=== PATIENT | female | born 1985 | race Caucasian/White ===

== ENCOUNTER 2021-01-17 22:29 | Emergency (ER) | payer MEDICAID ==
[2021-01-17] MEDS ORDERED: Ketorolac 30 MG/ML SDV IM ONE (23:01)
[2021-01-17] MEDS ORDERED: Cyclobenzaprine 10 MG Tab PO ONE (23:01)
[2021-01-17] MEDS ORDERED: predniSONE 10 MG Tab PO STA (23:02)
--- NOTE | 2021-01-17 23:08 | EDM.PDOC ---
ED HPI GENERAL MEDICAL PROBLEM - General Chief Complaint: Upper Extremity Injury/Pain Stated Complaint: R SHOULDER PAIN Time Seen by Provider: 01/17/21 22:40 Source of Information: Reports: Patient History Limitations: Reports: No Limitations - History of Present Illness INITIAL COMMENTS - FREE TEXT/NARRATIVE: has had right shoulder pain for the past 2 weeks states she does not recall any injury localized pain in the posterior aspect of the shoulder, upper scapular region , with radiation the the shoulder with movement . 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 Denies: Headaches, Weakness Treatments DRY CANS BACK TENDER: Reports: Acetaminophen, Cold Therapy, Heat Therapy, NSAIDS - Related Data Allergies Allergy/AdvReac Type Severity Reaction Status Date / Time acetaminophen [From Vicodin] Allergy Hives Verified 01/17/21 22:46 azithromycin Allergy Other Verified 01/17/21 22:46 hydrocodone [From Vicodin] Allergy Hives Verified 01/17/21 22:46 Sulfa (Sulfonamide Allergy Other Verified 01/17/21 22:46 Antibiotics) Home Meds: Home Meds Cyclobenzaprine [Flexeril] 10 mg PO BID #30 tab 01/17/21 [Rx] Diclofenac Sodium 100 gm TP BID #100 gel..gram. 01/17/21 [Rx] predniSONE [Prednisone] 40 mg PO DAILY #10 tablet 01/17/21 [Rx] Review of Systems - Review of Systems Review Of Systems: Comprehensive ROS is negative, except as noted in HPI. ED EXAM, GENERAL - Physical Exam Exam: See Below Exam Limited By: No Limitations General Appearance: Alert, WD/WN, No Apparent Distress Eye Exam: Bilateral Eye: EOMI Ears: Normal External Exam Ear Exam: Bilateral Ear: TM normal Nose: Normal Inspection Throat/Mouth: Normal Inspection, Normal Oropharynx Head: Atraumatic, Normocephalic Neck: Supple, Non-Tender Respiratory/Chest: No Respiratory Distress, Lungs Clear, Normal Breath Sounds Cardiovascular: Regular Rate, Rhythm GI/Abdominal: Soft, Non-Tender Back Exam: Full Range of Motion Extremities: Other (right shoudler pain in the upper scapula, irritated with movement and palpation). No: Arm Pain Neurological: Alert, Oriented, CN II-XII Intact, Normal Cognition, Normal Gait, Normal Reflexes, No Motor/Sensory Deficits Psychiatric: Normal Affect, Normal Mood Skin Exam: Warm, Dry, Intact Lymphatic: No Adenopathy Course - Vital Signs Last Recorded V/S: Last Vital Signs Temp 36.7 C 01/17/21 22:48 Pulse 86 01/17/21 22:48 Resp 16 01/17/21 22:48 BP 147/92 H 01/17/21 22:48 Pulse Ox 96 01/17/21 22:48 - Orders/Labs/Meds Meds: Medications Discontinued Medications Generic Name Dose Route Start Last Admin Trade Name Freq PRN Reason Stop Dose Admin Cyclobenzaprine HCl 10 mg 01/17/21 23:01 01/17/21 23:12 Cyclobenzaprine 10 Mg Tab PO 01/17/21 23:02 10 mg ONETIME ONE Administration Ketorolac Tromethamine 60 mg 01/17/21 23:01 01/17/21 23:12 Ketorolac 30 Mg/Ml Sdv IM 01/17/21 23:02 60 mg ONETIME ONE Administration Prednisone 40 mg 01/17/21 23:02 01/17/21 23:11 Prednisone 10 Mg Tab PO 01/17/21 23:03 40 mg NOW STA Administration Prednisone Confirm 01/17/21 23:11 Prednisone 20 Mg Tab Administered 01/17/21 23:12 Dose 40 mg .ROUTE .STK-MED ONE - Re-Assessments/Exams Free Text/Narrative Re-Assessment/Exam: 01/17/21 23:09 pt given toradol, prednisone , flexeril does not need Xray ( no obvious trauma) Departure - Departure Time of Disposition: 22:45 Disposition: Home, Self-Care 01 Condition: Fair Clinical Impression: Sprain of shoulder, Acute pain of right shoulder - Discharge Information *PRESCRIPTION DRUG MONITORING PROGRAM REVIEWED*: Not Applicable *COPY OF PRESCRIPTION DRUG MONITORING REPORT IN PATIENT PHILLY: Not Applicable Prescriptions: Diclofenac Sodium 100 gm TP BID #100 gel..gram. Cyclobenzaprine [Flexeril] 10 mg PO BID #30 tab predniSONE [Prednisone] 40 mg PO DAILY #10 tablet Instructions: Shoulder Pain, [id number] Referrals: PCP,Not In Area [Primary Care Provider] - Forms: ED Department Discharge Sepsis Event Note (ED) - Focused Exam Vital Signs: Vital Signs Temp Pulse Resp BP Pulse Ox 01/17/21 22:48 36.7 C 86 16 147/92 H 96
[2021-01-17] MEDS ORDERED: predniSONE 20 MG Tab ONE (23:11)
== END 2021-01-17 23:25 | disposition home or self-care (01) ==
LOC: FB.ED 22:29
DX: S43.401A Unspecified sprain of right shoulder joint, initial encounter (principal); Z88.2 Allergy status to sulfonamides; Z88.5 Allergy status to narcotic agent; Z88.1 Allergy status to other antibiotic agents; Z88.8 Allergy status to other drugs, medicaments and biological substances; W18.30XA Fall on same level, unspecified, initial encounter
CPT/HCPCS: 96372; 99283; A9270; J1885; J7512